=== PATIENT | female | born 2000 | race Hispanic/Latino ===

== ENCOUNTER 2019-07-16 18:10 | Emergency (ER) | payer SELFPAY ==
[~2019-07-16] VITALS: Ht 154.9 cm; Wt 63.5 kg
--- OUTSIDE RECORDS SUMMARY | 2019-07-16 18:12 | XMS REPORT ---
Author Author [facility] Address Unknown Phone Unavailable Care Team Providers Care Accounting Specialist Name Role Phone ISAIAH SERVIN Unavailable Unavailable Problems This patient has no known problems. Allergies, Adverse Reactions, Alerts This patient has no known allergies or adverse reactions. Medications This patient has no known medications. Encounters Start Date/Time End Date/Time Encounter Type Admission Type Attending Clinicians Care Facility Care Department Encounter ID 2017-07-13 00:00:00 2017-07-13 00:00:00 Outpatient [facility] [id number] 2017-05-25 00:00:00 2017-05-25 00:00:00 Outpatient [facility] [id number] 2017-05-19 09:33:55 2017-05-19 09:33:55 Outpatient [facility] [id number] 2017-05-18 14:08:27 2017-05-18 14:08:27 Outpatient [facility] [id number] Results Test Description Test Time Test Comments Text Results Atomic Results Result Comments MAGNESIUM 2018-08-23 07:32:00 MAGNESIUM (BEAKER) (test lbhk=174) 2.0 mg/dL 1.6-2.6 BASIC METABOLIC [id number] 07:32:00* Test Item Value Reference Range Comments SODIUM (BEAKER) (test pymw=595) 137 meq/L 136-145 POTASSIUM (BEAKER) (test xfjt=258) 4.1 meq/L 3.5-5.1 CHLORIDE (BEAKER) (test nunz=755) 106 meq/L 98-107 CO2 (BEAKER) (test qebv=147) 25 meq/L 22-29 BLOOD UREA NITROGEN (BEAKER) (test bfwi=868) 13 mg/dL 7-21 CREATININE (BEAKER) (test nxhv=390) 0.70 mg/dL 0.57-1.25 GLUCOSE RANDOM (BEAKER) (test onst=861) 98 mg/dL 70-105 CALCIUM (BEAKER) (test jwsj=585) 9.3 mg/dL 8.4-10.2 EGFR (BEAKER) (test kwnx=6714) 108 mL/min/1.73 sq m ESTIMATED GFR IS NOT ACCURATE CREATININE CLEARANCE IN PREDICTING GLOMERULAR FILTRATION RATE. ESTIMATED GFR IS NOT APPLICABLE FOR DIALYSIS PATIENTS. PROTHROMBIN TIME/[id number] 07:20:00* Test Item Value Reference Range Comments PROTIME (BEAKER) (test gycc=618) 13.5 seconds 11.7-14.7 INR (BEAKER) (test xdgv=400) 1.0 <=5.9 RECOMMENDED COUMADIN/WARFARIN INR THERAPY RANGESSTANDARD DOSE: 2.0 - 3.0 Inclu anastasia: PROPHYLAXIS for venous thrombosis, systemic embolization; TREATMENT for [place] ous thrombosis and/or pulmonary embolus.HIGH RISK: Target INR is 2.5-3.5 for pat ients with mechanical heart valves.Within 24 hours, if on CoumadinCBC (HEMOGRAM ONLY)2018-08-23 07:07:00* Test Item Value Reference Range Comments WHITE BLOOD CELL COUNT (BEAKER) (test ffbo=509) 8.0 K/ L 3.5-10.5 RED BLOOD CELL COUNT (BEAKER) (test hebu=544) 4.81 M/ L 3.93-5.22 HEMOGLOBIN (BEAKER) (test buxn=891) 12.2 GM/DL 11.2-15.7 HEMATOCRIT (BEAKER) (test wtys=680) 39.5 % 34.1-44.9 MEAN CORPUSCULAR VOLUME (BEAKER) (test bagk=744) 82.1 fL 79.4-94.8 MEAN CORPUSCULAR HEMOGLOBIN (BEAKER) (test mxxu=014) 25.4 pg 25.6-32.2 MEAN CORPUSCULAR HEMOGLOBIN CONC (BEAKER) (test ycsf=263) 30.9 GM/DL 32.2-35.5 RED CELL DISTRIBUTION WIDTH (BEAKER) (test qkla=393) 14.6 % 11.7-14.4 PLATELET COUNT (BEAKER) (test gwnt=570) 259 K/CU MM 150-450 MEAN PLATELET VOLUME (BEAKER) (test eycv=354) 10.2 fL 9.4-12.3 NUCLEATED RED BLOOD CELLS (BEAKER) (test qhtj=298) 0 /100 WBC 0-0 EEG AWAKE AND [id number] 17:08:00Reason for exam:->R55, R40.20 ELECTROENCEPHALOGRAM EEG NUMBER: [id number] EXAM DATE: 2017 START TIME: 1500 END TIME: 1530 ICD10: R56.9 CPT: 49636 TECHNICAL SUMM CARRILLO There is a low voltage 10 Hz occipital dominant rhythm. Low voltage 18 to 22 Hz activity is present in anterior regions. Hyperventilation: No signific ant change with 3 minutes of adequate overbreathing. Photic stimulation: No ab normal activity elicited. Sleep: The patient did not sleep. During drowsiness there are no focal or lateralizing features and no abnormal waveforms. IMPRES TAYLOR: The findings of this patient's electroencephalogram are within the range of normal variation. Dallas Mcneal MD
--- NOTE | 2019-07-16 18:58 | NUR ---
REPORT TO HOLLY DE LA CRUZ ALL QUESTIONS ANSWERED
[2019-07-16] MEDS ORDERED: AZITHROMYCIN 250 MG TAB PO STA (19:25)
[2019-07-16] MEDS ORDERED: CEFTRIAXONE SOD 250 MG VIAL IM ONE (19:30)
[2019-07-16] MEDS ORDERED: AZITHROMYCIN 250 MG TAB ONE (20:07)
[2019-07-16] MEDS ORDERED: CEFTRIAXONE SOD 500 MG VIAL ONE (20:07)
[2019-07-16] MEDS ORDERED: LIDOCAINE HCL 1% LOCAL INJ 20 ML VIAL ONE (20:08)
[2019-07-16] MEDS ORDERED: CEPHALEXIN500 MG PO (20:44)
[2019-07-16 20:57] VITALS: BP 143/82
== END 2019-07-16 20:59 | disposition home or self-care (01) ==
LOC: FSED 18:10
DX: R30.0 Dysuria (principal); N89.8 Other specified noninflammatory disorders of vagina; N30.90 Cystitis, unspecified without hematuria
CPT/HCPCS: 36415; 81003; 81025; 87081; 87186; 87205; 87210; 99283; J0696 ×2; J2001